=== PATIENT | female | born 1950 | race American Indian/Alaskan Native ===

== ENCOUNTER 2017-12-03 07:40 | Emergency (ER) | payer MEDICARE ==
[2017-12-03 07:40] VITALS: BMI 28.1
[2017-12-03 07:51] VITALS: BP 123/82; PULSE 86; RESP 16; TEMP 98.5; O2SAT 98
--- NOTE | 2017-12-03 08:29 | C.PDOC ---
<Joslyn Taylor - Last Filed: 12/03/17 08:30> <Althea Meyer - Last Filed: 12/03/17 08:41> Time Seen by Provider: 12/03/17 07:48 Chief Complaint (Nursing): Abnormal Skin Integrity Past Medical History - Medical History PMH: HTN, Hypercholesterolemia, Hypothyroidism, TIA Family History: States: Unknown Family Hx - Social History Hx Alcohol Use: No Hx Substance Use: No - Immunization History Hx Tetanus Toxoid Vaccination: No Hx Influenza Vaccination: No Hx Pneumococcal Vaccination: No <Althea Meyer - Last Filed: 12/03/17 08:41> Vital Signs: Last Vital Signs Temp 98.5 F 12/03/17 07:45 Pulse 86 12/03/17 07:45 Resp 16 12/03/17 07:45 BP 123/82 12/03/17 07:45 Pulse Ox 98 12/03/17 08:29 - [facility] Procedures CLOSED ENDOSCOPIC BIOPSY OF LARGE INTESTINE (06/06/13) ED Course And Treatment O2 Sat by Pulse Oximetry: 98 <Althea Meyer - Last Filed: 12/03/17 08:41> Supervising Attending Note - Supervising Attending Note The Documented history was done by the: Physician [employer] The documented physical exam was done by the: Physician [employer]man The documented procedures were done by the: Physician [employer]man - Attestation: I have personally seen and examined this patient.: Yes I have fully participated in the care of the patient.: Yes I have reviewed all pertinent clinical information, including history, physical exam and plan: Yes <Joslyn Taylor - Last Filed: 12/03/17 08:30> <Althea Meyer - Last Filed: 12/03/17 08:41> - Notes: Notes:: NEW ONSET RASH B/L LOWER NECK X 3 DAYS, NEW ONSET B/L ANTECUBITAL, BELOW BREASTS AND R ABD WALL RASH X 1 DAY. +ITCH. WAS ON CEFDINIR FOR URI "BUT I THOUGHT THIS WAS ALLERGIC REACTION SO I STOPPED IT 4 DAYS AGO". NO IMPROVE RASH DESPITE STOPPING RASH. S/P PREDNISONE 20 MG QD X 5 DAYS, FINISHED 4 DAYS AGO. DENIES HO ECZEMA, CONTACT DERMATITIS. EXAM ABOVE. (Joslyn Taylor) Disposition Counseled Patient/Family Regarding: Diagnosis, Need For Followup, Rx Given - Disposition Disposition Time: 08:33 <Joslyn Taylor - Last Filed: 12/03/17 08:30> <Althea Meyer - Last Filed: 12/03/17 08:41> - Disposition Referrals: YOUR,PMD [Other] Disposition: HOME/ ROUTINE Condition: IMPROVED Prescriptions: Clotrimazole/Betamethasone [Lotrisone] 15 gm EXT BID #1 tube Famotidine [Pepcid AC] 10 mg PO QN #15 tablet Methylprednisolone [Medrol] 4 mg PO DAILY #1 packet Instructions: Yeast Infection (DC) Forms: [employer] ([place]) - Clinical Impression Clinical Impression: Tinea corporis
== END 2017-12-03 08:47 | disposition home or self-care (01) ==
LOC: C.ER 07:40
DX: B35.4 Tinea corporis (principal)

== ENCOUNTER 2018-08-01 10:13 | Outpatient (CLI) | payer MEDICARE | END 2018-08-01 10:14 | disposition home or self-care (01) | LOC: C.LAB 10:13 | DX: E23.6 Other disorders of pituitary gland (principal); E03.9 Hypothyroidism, unspecified; E11.69 Type 2 diabetes mellitus with other specified complication ==